=== PATIENT | male | born 1975 | race Caucasian/White ===

== ENCOUNTER 2024-03-05 19:08 | Emergency (ER) | payer OTHER ==
[~2024-03-05] VITALS: Ht 172.7 cm; Wt 72.6 kg
[2024-03-05] MEDS ORDERED: Ibuprofen 400 MG Tab PO ONE (22:55)
== END 2024-03-05 23:50 | disposition home or self-care (01) ==
LOC: ER 19:08
DX: S61.210A Laceration without foreign body of right index finger without damage to nail, initial encounter (principal); W27.0XXA Contact with workbench tool, initial encounter
CPT/HCPCS: 73130; 99283-25; A9270